=== PATIENT | female | born 1950 | race Caucasian/White ===

== ENCOUNTER → 2024-11-19 | Outpatient (CLI) | payer OTHER | LOC: LAB SHORT 18:03 → LAB 18:03 | DX: R30.0 Dysuria (principal) | CPT/HCPCS: 87086 ==

== ENCOUNTER → 2024-12-10 | Outpatient (CLI) | payer OTHER | LOC: LAB 13:28 → LAB SHORT 13:28 | DX: R30.0 Dysuria (principal); Z87.440 Personal history of urinary (tract) infections | CPT/HCPCS: 87086 ==